=== PATIENT | female | born 1960 | race Caucasian/White ===

== ENCOUNTER 2017-08-09 00:04 | Emergency (ER) | payer OTHER ==
[~2017-08-09] VITALS: Ht 172.7 cm; Wt 73.9 kg
[2017-08-09 00:12] VITALS: BP 163/88
== END 2017-08-09 01:29 | disposition admitted as inpatient to this hospital (09) ==
LOC: ERH 00:04
DX: R58 Hemorrhage, not elsewhere classified (principal)